=== PATIENT | female | born 1945 | race Caucasian/White ===

== ENCOUNTER 2016-10-28 12:33 | Outpatient (CLI) | payer MEDICARE ==
[2016-10-28 13:14] LABS: #Basophils 0.1 thou/uL (0.0-0.2); #Eosinphils 0.1 thou/uL (0.0-0.7); #Lymphocytes 2.3 thou/uL (1.20-3.40); #Monocytes 0.5 thou/uL (0.11-0.59); #Neutrophils 5.2 thou/uL (1.40-6.50); %Basophils 1.3 % (0.0-1.0); %Eosinophils 1.8 % (0.0-10.0); %Lymphocytes 27.8 % (21.0-51.0); %Monocytes 6.3 % (0.0-10.0); %Neutrophils 62.9 % (42.0-75.0); Mean Corpuscular Hemoglobin 29.8 pg (27.0-31.0); Mean Corpuscular Volume 90.3 fl (81.0-99.0); Mean Platelet Volume 9.9 fL (7.4-10.4); Platelet Count 244 thou/uL (130-400); RBC Distribution Width 11.7 % (11.5-14.5); Red Blood Cell (RBC) Count 5.37 mill/uL (4.20-5.40); White Blood Cell (WBC) Count 8.3 thou/uL (4.8-10.8)
[2016-10-28 13:17] LABS: Hemoglobin A1c 5.2 % (4.0-6.0)
[2016-10-28 13:26] LABS: ALT (SGPT) 35 U/L (0-55); AST (SGOT) 29 U/L (5-34); Albumin 4.7 g/dL (3.4-4.8); Alkaline Phosphatase 72 U/L (40-150); Anion Gap 14 mmol/L (10-20); BUN (Urea Nitrogen) 15 mg/dL (9.8-20.1); Bilirubin, Direct 0.1 mg/dL (0.1-0.3); Bilirubin, Total 0.3 mg/dL (0.2-1.2); Calc. Creatinine Clearance 0 mL/min (70-130); Calcium 10.2 mg/dL (7.8-10.44); Carbon Dioxide 30 mmol/L (23-31); Cardiac Risk 5.1 (Less than 4.5); Chloride 100 mmol/L (98-107); Cholesterol 258 mg/dL (< 200 Desired); Estimated GFR-MDRD 78; Glucose 107 mg/dL (83-110); HDL Cholesterol 51 mg/dL (>60 Neg Risk); LDL Cholesterol, Calculated 139 mg/dL; Potassium 3.9 mmol/L (3.5-5.1); Protein, Total 8.2 g/dL (5.8-8.1); Sodium 140 mmol/L (136-145); Triglycerides 339 mg/dL (Less than 150)
== END 2016-10-28 12:34 | disposition home or self-care (01) ==
LOC: MADLABBHPM 12:33
PROVIDERS: ATTEND Physician Assistant Medical
DX: E11.9 Type 2 diabetes mellitus without complications (principal)
CPT/HCPCS: 36415; 80048; 80061; 80076; 83036; 85025

== ENCOUNTER 2017-01-27 12:42 | Outpatient (CLI) | payer MEDICARE ==
[2017-01-27 13:06] LABS: #Basophils 0.1 thou/uL (0.0-0.2); #Eosinphils 0.1 thou/uL (0.0-0.7); #Lymphocytes 2.1 thou/uL (1.20-3.40); #Monocytes 0.5 thou/uL (0.11-0.59); #Neutrophils 4.1 thou/uL (1.40-6.50); %Basophils 1.5 % (0.0-1.0); %Eosinophils 2.1 % (0.0-10.0); %Lymphocytes 29.9 % (21.0-51.0); %Monocytes 7.1 % (0.0-10.0); %Neutrophils 59.4 % (42.0-75.0); Hemoglobin 15.3 g/dL (12.0-16.0); Mean Corpuscular HGB CONC 32.4 g/dL (32.0-36.0); Mean Corpuscular Hemoglobin 28.4 pg (27.0-31.0); Mean Corpuscular Volume 87.6 fl (81.0-99.0); Mean Platelet Volume 9.2 fL (7.4-10.4); Platelet Count 274 thou/uL (130-400); RBC Distribution Width 13.3 % (11.5-14.5); Red Blood Cell (RBC) Count 5.39 mill/uL (4.20-5.40); White Blood Cell (WBC) Count 6.9 thou/uL (4.8-10.8)
[2017-01-27 13:19] LABS: Hemoglobin A1c 5.5 % (4.0-6.0)
[2017-01-27 13:21] LABS: ALT (SGPT) 38 U/L (8-55); AST (SGOT) 30 U/L (5-34); Albumin 4.6 g/dL (3.4-4.8); Alkaline Phosphatase 78 U/L (40-150); Anion Gap 16 mmol/L (10-20); BUN (Urea Nitrogen) 12 mg/dL (9.8-20.1); Bilirubin, Direct 0.2 mg/dL (0.1-0.3); Bilirubin, Total 0.5 mg/dL (0.2-1.2); Calc. Creatinine Clearance 0 mL/min (70-130); Calcium 10.1 mg/dL (7.8-10.44); Carbon Dioxide 29 mmol/L (23-31); Cardiac Risk 5.3 (Less than 4.5); Chloride 100 mmol/L (98-107); Cholesterol 249 mg/dl (< 200 Desired); Estimated GFR-MDRD 75; Glucose 95 mg/dL (83-110); HDL Cholesterol 47 mg/dL (>60 Neg Risk); LDL Cholesterol, Calculated 142 mg/dL; Potassium 3.8 mmol/L (3.5-5.1); Sodium 141 mmol/L (136-145); Triglycerides 300 mg/dL (Less than 150)
== END 2017-01-27 12:43 ==
LOC: MADLABBHPM 12:42
PROVIDERS: ATTEND Family Medicine
DX: E78.2 Mixed hyperlipidemia (principal); E11.9 Type 2 diabetes mellitus without complications; I10 Essential (primary) hypertension; E89.0 Postprocedural hypothyroidism; L43.3 Subacute (active) lichen planus
CPT/HCPCS: 36415; 80048; 80061; 80076; 83036; 84443; 85025

== ENCOUNTER 2017-04-28 10:23 | Outpatient (CLI) | payer MEDICARE ==
[2017-04-28 10:49] LABS: Hemoglobin A1c 5.5 % (4.0-6.0)
[2017-04-28 12:26] LABS: ALT (SGPT) 43 U/L (8-55); AST (SGOT) 29 U/L (5-34); Albumin 4.4 g/dL (3.4-4.8); Alkaline Phosphatase 79 U/L (40-150); Anion Gap 16 mmol/L (10-20); BUN (Urea Nitrogen) 17 mg/dL (9.8-20.1); Bilirubin, Direct 0.1 mg/dL (0.1-0.3); Bilirubin, Total 0.4 mg/dL (0.2-1.2); Calc. Creatinine Clearance 0 mL/min (70-130); Calcium 9.8 mg/dL (7.8-10.44); Carbon Dioxide 26 mmol/L (23-31); Cardiac Risk 5.3 (Less than 4.5); Chloride 103 mmol/L (98-107); Cholesterol 243 mg/dl (< 200 Desired); Estimated GFR-MDRD 68; Glucose 120 mg/dL (83-110); HDL Cholesterol 46 mg/dL (>60 Neg Risk); LDL Cholesterol, Calculated 144 mg/dL; Potassium 3.9 mmol/L (3.5-5.1); Protein, Total 7.8 g/dL (6.0-8.3); Sodium 141 mmol/L (136-145); Triglycerides 264 mg/dL (Less than 150)
== END 2017-04-28 10:24 | disposition home or self-care (01) ==
LOC: MADLABBHPM 10:23
PROVIDERS: ATTEND Family Medicine
DX: E78.2 Mixed hyperlipidemia (principal); E89.0 Postprocedural hypothyroidism; E11.9 Type 2 diabetes mellitus without complications
CPT/HCPCS: 36415; 80048; 80061; 80076; 83036; 84443

== ENCOUNTER 2023-09-10 08:35 | Emergency (ER) | payer MEDICARE ==
[2023-09-10] MEDS ORDERED: Lidocaine 4% Patch ONE (09:13)
[2023-09-10] MEDS ORDERED: Ketorolac Tromethamine 30 MG (1 mL) VIAL ONE (09:13)
[2023-09-10 09:27] LABS: #Basophils 0.1 thou/uL (0.0-0.2); #Eosinphils 0.1 thou/uL (0.0-0.7); #Monocytes 0.6 thou/uL (0.11-0.59); #Neutrophils 9.5 thou/uL (1.40-6.50); %Eosinophils 0.6 % (0.0-10.0); %Monocytes 4.5 % (0.0-10.0); %Neutrophils 77.9 % (42.0-75.0); Hematocrit 50.6 % (36.0-47.0); Hemoglobin 15.4 g/dL (12.0-16.0); Mean Corpuscular HGB CONC 30.4 g/dL (32.0-36.0); Mean Corpuscular Hemoglobin 27.7 pg (27.0-31.0); Mean Corpuscular Volume 91.1 fl (78.0-98.0); Mean Platelet Volume 10.2 fL (7.4-10.4); Platelet Count 302 10x3/uL (130-400); RBC Distribution Width 13.4 % (11.5-14.5); Red Blood Cell (RBC) Count 5.55 mill/uL (4.20-5.40); White Blood Cell (WBC) Count 12.2 10x3/uL (4.8-10.8)
[2023-09-10 09:39] LABS: Anion Gap 18 mmol/L (10-20); BUN (Urea Nitrogen) 12 mg/dL (9.8-20.1); Calc. Creatinine Clearance 0 mL/min (70-130); Calcium 10.1 mg/dL (7.8-10.44); Carbon Dioxide 26 mmol/L (23-31); Chloride 102 mmol/L (98-107); Estimated GFR 77; Glucose 160 mg/dL (83-110); Sodium 142 mmol/L (136-145)
[2023-09-10 09:42] LABS: Troponin I Less than 0.010 ng/mL (< 0.028)
== END 2023-09-10 10:50 | disposition home or self-care (01) ==
LOC: MADERS 08:35
DX: S22.32XA Fracture of one rib, left side, initial encounter for closed fracture (principal); E11.39 Type 2 diabetes mellitus with other diabetic ophthalmic complication; H42 Glaucoma in diseases classified elsewhere; I10 Essential (primary) hypertension; J44.9 Chronic obstructive pulmonary disease, unspecified; F17.200 Nicotine dependence, unspecified, uncomplicated; X58.XXXA Exposure to other specified factors, initial encounter; Y93.89 Activity, other specified
CPT/HCPCS: 36415; 80048; 83880; 84484; 85025; 93005; 96372; J1885

== ENCOUNTER 2024-09-24 13:34 | Inpatient (IN) | payer MEDICARE ==
[2024-09-24] MEDS ORDERED: Bisacodyl 10 MG SUPP PR PRN (23:09)
[2024-09-24] MEDS ORDERED: Senokot S 8.6-50 MG TAB PO PRN (23:09)
[2024-09-24] MEDS ORDERED: Loperamide HCl 2 MG CAP PO PRN ×2 (23:09)
[2024-09-24] MEDS ORDERED: Bisacodyl 5 MG TAB PO PRN (23:09)
[2024-09-24] MEDS ORDERED: Benzonatate 100 MG CAP PO PRN (23:13)
[2024-09-24] MEDS ORDERED: predniSONE 20 MG TAB PO SCH (23:15)
[2024-09-25] MEDS: Albuterol 200 PUFF (6.7GM INHALER) INH SCH (00:21)
[2024-09-25] MEDS: Ipratropium Bromide 2.5 ml Neb NEB SCH (00:22)
[2024-09-25 01:21] VITALS: BMI 19.2
[2024-09-25] MEDS: Levothyroxine Sodium 50 MCG TAB PO SCH (04:28)
[2024-09-25] MEDS: HYDROcodone/Acetaminophen 5/325 mg Tablet PO PRN (04:29)
[2024-09-25] MEDS: Guaifenesin DM 100-10/5 ML UDCUP PO PRN (04:46)
[2024-09-25] MEDS: Lorazepam 0.5 MG TAB PO PRN (05:29)
[2024-09-25] MEDS: Mometasone 200 MCG/Formoterol 5 MCG 60 PUFF INHALER INH SCH (08:29)
[2024-09-25] MEDS: Enoxaparin 30 MG (0.3 mL) SYRINGE SC SCH (09:06)
[2024-09-25] MEDS: FLU (Fluad Triv) TS24-25 (65UP)/MF59C/PF 45 MCG/0.5 ML Syringe IM ONE (09:06)
[2024-09-25] MEDS: Pantoprazole 40 MG DR.TAB PO SCH (09:08)
[2024-09-25] MEDS: guaiFENesin ER 600 MG TAB PO SCH (09:08)
[2024-09-25] MEDS: predniSONE 20 MG TAB PO SCH (09:08)
[2024-09-25] MEDS: Hydrochlorothiazide 25 MG TAB PO SCH (09:10)
[2024-09-25] MEDS: Potassium Chloride 10 MEQ TAB PO SCH (09:31)
[2024-09-25] MEDS: Potassium Bicarbonate/Cit Ac 20 MEQ TAB PO SCH (09:32)
[2024-09-25] MEDS: Amlodipine 5 MG TAB PO SCH (11:19)
[2024-09-25 11:30] VITALS: BMI 19.2
[2024-09-25] MEDS: Morphine IR Tab 15 MG TAB PO PRN (12:06)
[2024-09-25] MEDS: AcetaZOLAMIDE 250 MG TAB PO SCH (15:19)
[2024-09-25] MEDS: Ipratropium/Albuterol 3 ML NEB NEB PRN (15:21)
[2024-09-25] MEDS: Multivit, Therapeutic 1 TAB PO SCH (21:22)
[2024-09-26] MEDS: Acetaminophen 325 MG TAB PO PRN (00:13)
[2024-09-26] MEDS: Levothyroxine Sodium 75 MCG TAB PO SCH (05:55)
[2024-09-26] MEDS: Potassium Bicarbonate/Cit Ac 20 MEQ TAB PO SCH (08:35)
[2024-09-26] MEDS: Polyethylene Glycol 3350 17 GM Packet PO SCH (08:35)
[2024-09-26] MEDS: Morphine 10 MG/0.5 ML ORAL SYRINGE SL PRN (11:10)
[2024-09-27] MEDS: methylPREDNISolone Sod Succ 40 MG VIAL IVP SCH (12:39)
[2024-09-27] MEDS: Sodium Chloride 0.9% 1,000 ML IV SCH (12:40)
[2024-09-27 12:58] LABS: Hematocrit 35.6 % (36.0-47.0); Hemoglobin 10.6 g/dL (12.0-16.0); Mean Corpuscular HGB CONC 29.8 g/dL (32.0-36.0); Mean Corpuscular Hemoglobin 27.6 pg (27.0-31.0); Mean Corpuscular Volume 92.4 fl (78.0-98.0); Mean Platelet Volume 10.4 fL (7.4-10.4); Platelet Count 206 10x3/uL (130-400); Red Blood Cell (RBC) Count 3.85 mill/uL (4.20-5.40); White Blood Cell (WBC) Count 16.9 10x3/uL (4.8-10.8)
[2024-09-27 13:10] LABS: Band 18 % (5-11); Lymphocytes 1 % (21-51); MDiff Complete? YES; Manual Diff?? YES; Monocytes 1 % (0-10); Neutrophil 70 % (42-75)
[2024-09-27 13:11] LABS: Anisocytosis SLIGHT = 6-15 cells (100X) (0-5/hpf); Platelet Adequacy Comment Appears Adequate
[2024-09-27 13:15] LABS: ALT (SGPT) 38 U/L (8-55); AST (SGOT) 48 U/L (5-34); Albumin 2.8 g/dL (3.4-4.8); Alkaline Phosphatase 97 U/L (40-110); Anion Gap 19 mmol/L (10-20); BUN (Urea Nitrogen) 39 mg/dL (9.8-20.1); Base Excess-Venous 3.4 mmol/L (-2.0 to 3.0); Bicarbonate (HCO3v) 35.5 mmol/L (22.0-28.0); Bilirubin, Total 0.6 mg/dL (0.2-1.2); Calc. Creatinine Clearance 14 mL/min (70-130); Calcium 8.3 mg/dL (7.8-10.44); Carbon Dioxide 31 mmol/L (23-31); Chloride 101 mmol/L (98-107); Chloride 99 mmol/L (98-107); Estimated GFR 18; Globulin 3.6 g/dL (2.4-3.5); Glucose 97 mg/dL (83-110); Hemoglobin - Calc 12.7 g/dL (12.0-16.0); Potassium 5.2 mmol/L (3.5-5.1); Potassium 5.3 mmol/L (3.5-5.1); Protein, Total 6.4 g/dL (5.8-8.1); Sodium 141 mmol/L (138-145); Sodium 144 mmol/L (136-145); T. Carbon Dioxide 38.6 mmol/L (22.0-28.0); vO2 Saturation-calc 91.1 % (60.0-85.0)
[2024-09-27 13:25] LABS: CO2 Tension (PvCO2) 102.4 mmHg (42.0-51.0)
[2024-09-27] MEDS: methylPREDNISolone Sod Succ/PF 125 MG/2 ML VIAL IVP SCH (20:22)
[2024-09-28] MEDS: Sodium Chloride 0.9% 1,000 ML IV SCH (13:31)
[2024-09-28 19:14] VITALS: BP 71/45; TEMP 97.5
[2024-09-30] MEDS ORDERED: predniSONE 10 MG TAB PO SCH (08:00)
[2024-10-02] MEDS ORDERED: Levothyroxine 100 MCG SDV SLOW IVP SCH (09:00)
[2024-10-05] MEDS ORDERED: predniSONE 20 MG TAB PO SCH (08:00)
[2024-10-10] MEDS ORDERED: predniSONE 10 MG TAB PO SCH (08:00)
== END 2024-09-28 23:43 | disposition expired | DRG 947 ==
LOC: MADMS 22:33
PROVIDERS: ADMIT Family Medicine; ATTEND Family Medicine
DX: R53.81 Other malaise (principal); J96.20 Acute and chronic respiratory failure, unspecified whether with hypoxia or hypercapnia; J44.1 Chronic obstructive pulmonary disease with (acute) exacerbation; I10 Essential (primary) hypertension; E11.9 Type 2 diabetes mellitus without complications; E78.5 Hyperlipidemia, unspecified; E03.9 Hypothyroidism, unspecified; Z87.891 Personal history of nicotine dependence; Z79.899 Other long term (current) drug therapy; Z88.8 Allergy status to other drugs, medicaments and biological substances; Z66 Do not resuscitate; I49.9 Cardiac arrhythmia, unspecified
CPT/HCPCS: 71045; 80053; 82330; 82435; 82803; 84132; 84295; 85014; 85025; 94640; J1650; J2919; J7030; J7512; J7620; J7644